=== PATIENT | male | born 1965 | race Caucasian/White ===

== ENCOUNTER 2022-02-16 21:47 | Emergency (ER) | payer OTHER ==
[~2022-02-16] VITALS: Ht 177.8 cm; Wt 88.0 kg
[2022-02-16 22:35] VITALS: BP 141/84
--- NOTE | 2022-02-16 22:35 | NUR ---
BIBWIFE C/O WOUND CHECK TO OPEN WOUND LEFT BUTTOCK 2CM. WENT TO [facility] FOR WOUND CARE TO ABSCESS. PT A/OX4; VIET[place]ESE SPEAKING. TOLERATING R/A WELL WITH NO RESP DISTRESS OR SOB. CONNECTED PT TO POX AND MONITOR. SAFETY MEASURES IN PLACE.
--- NOTE | 2022-02-16 23:21 | NUR ---
EMT AT PT'S BEDSIDE FOR WOUND CARE
--- NOTE | 2022-02-16 23:59 | NUR ---
Patient discharged to home in stable condition. Written and verbal after care instructions given. Patient verbalizes understanding of instruction.
== END 2022-02-17 | disposition home or self-care (01) ==
LOC: ER 22:13
DX: L76.22 Postprocedural hemorrhage of skin and subcutaneous tissue following other procedure (principal); I10 Essential (primary) hypertension; E78.00 Pure hypercholesterolemia, unspecified; E78.5 Hyperlipidemia, unspecified; E11.9 Type 2 diabetes mellitus without complications